=== PATIENT | female | born 1990 | race Caucasian/White ===

== ENCOUNTER 2020-07-11 18:14 | Emergency (ER) | payer OTHER ==
[~2020-07-11 18:14] MED LIST: CEFUROXIME500 MG PO; OMEPRAZOLE20 M1 PO; TRANDATE 100 M100 MG PO; ZOLOFT25 MG PO
[2020-07-11 21:21] LABS: HEMOGLOBIN 13.6 gm/dl (12.3-15.3); RED BLOOD COUNT 5.03 M/UL (4.00-5.10); WHITE BLOOD COUNT 8.4 K/UL (4.5-11.0)
[2020-07-11 22:05] LABS: BUN/CREATININE RATIO 11 (0-10)
== END 2020-07-11 22:19 | disposition home or self-care (01) ==
LOC: ER1 18:14
PROVIDERS: Physician Assistant Medical
DX: O03.9 Complete or unspecified spontaneous abortion without complication (principal); I10 Essential (primary) hypertension; Z79.899 Other long term (current) drug therapy
CPT/HCPCS: 80053; 81001; 85025; 99284

== ENCOUNTER → 2020-07-13 | Day surgery (SDC) | payer OTHER ==
[2020-07-13 07:54] LABS: HEMOGLOBIN 12.6 gm/dl (12.3-15.3); RED BLOOD COUNT 4.78 M/UL (4.00-5.10); WHITE BLOOD COUNT 8.7 K/UL (4.5-11.0)
== END | disposition home or self-care (01) ==
LOC: OR 07:16
PROVIDERS: Obstetrics & Gynecology
PROC: 10D17ZZ Extraction of Products of Conception, Retained, Via Natural or Artificial Opening (ICD-10-PCS; principal; 2020-07-13 08:20)
DX: O02.1 Missed abortion (principal); Z3A.01 Less than 8 weeks gestation of pregnancy; F32.9 Major depressive disorder, single episode, unspecified; I10 Essential (primary) hypertension; G43.909 Migraine, unspecified, not intractable, without status migrainosus; Z20.822 Contact with and (suspected) exposure to COVID-19
CPT/HCPCS: 36415; 81001; 85025; J1100; J1170; J1885; J2001; J2250; J2270; J2405; J2704; J2795; J3010; J7120

== ENCOUNTER 2021-06-03 08:46 | Emergency (ER) | payer OTHER ==
[2021-06-03] MEDS ORDERED: AMOXICILLIN875 MG PO (10:33)
== END 2021-06-03 10:43 | disposition home or self-care (01) ==
LOC: ER1 08:46
DX: K12.2 Cellulitis and abscess of mouth (principal); I10 Essential (primary) hypertension; K21.9 Gastro-esophageal reflux disease without esophagitis
CPT/HCPCS: 87081; 87880; 96372; 99283; J1100

== ENCOUNTER 2021-07-08 21:18 | Emergency (ER) | payer OTHER ==
[~2021-07-08 21:18] MED LIST changes: +AMOXICILLIN875 MG PO
[2021-07-08 22:23] LABS: HEMOGLOBIN 12.3 gm/dl (12.3-15.3); RED BLOOD COUNT 4.55 M/UL (4.00-5.10); WHITE BLOOD COUNT 9.2 K/UL (4.5-11.0)
[2021-07-08 22:53] LABS: BUN/CREATININE RATIO 14 (0-10)
== END 2021-07-09 01:40 | disposition home or self-care (01) ==
LOC: ER1 21:18
PROVIDERS: Physician Assistant
DX: O99.891 Other specified diseases and conditions complicating pregnancy (principal); R07.89 Other chest pain; O10.911 Unspecified pre-existing hypertension complicating pregnancy, first trimester; Z20.822 Contact with and (suspected) exposure to COVID-19; Z3A.01 Less than 8 weeks gestation of pregnancy
CPT/HCPCS: 80053; 82550; 82553; 83874; 84484; 85025; 93005; 99285; U0002

== ENCOUNTER → 2021-07-19 | Day surgery (SDC) | payer OTHER ==
[~2021-07-19] MED LIST changes: +ESCITALOPRAM OX10 MG PO; +HYDROCODON-ACE1 EAC4 PO; +IBU600 MG PO
[2021-07-19 09:08] LABS: HEMOGLOBIN 12.4 gm/dl (12.3-15.3); RED BLOOD COUNT 4.66 M/UL (4.00-5.10); WHITE BLOOD COUNT 6.4 K/UL (4.5-11.0)
[2021-07-19 09:35] LABS: BUN/CREATININE RATIO 15 (0-10)
== END | disposition home or self-care (01) ==
LOC: OR 07-18 14:45
PROVIDERS: Obstetrics & Gynecology
DX: O02.1 Missed abortion (principal); I10 Essential (primary) hypertension; G43.909 Migraine, unspecified, not intractable, without status migrainosus; E66.9 Obesity, unspecified; Z3A.42 42 weeks gestation of pregnancy; Z20.822 Contact with and (suspected) exposure to COVID-19; K21.9 Gastro-esophageal reflux disease without esophagitis
CPT/HCPCS: 36415; 80053; 85025; J1100; J2001; J2250; J2405; J2704; J2795; J3010; J7120

== ENCOUNTER → 2022-01-08 | Outpatient (CLI) | payer OTHER ==
[~2022-01-08] MED LIST changes: +HYDROCODON-ACE1 EAC2 PO; +NAPROXEN 375 M375 MG PO; +VITAMIN B-121000 MCG PO; +VITAMIN D21250 MCG PO; +ZOFRAN 4 MG TAB4 MG PO
== END ==
LOC: RAD 11:08
DX: T83.89XA Other specified complication of genitourinary prosthetic devices, implants and grafts, initial encounter (principal); T83.39XA Other mechanical complication of intrauterine contraceptive device, initial encounter
CPT/HCPCS: 74018

== ENCOUNTER → 2022-01-10 | Day surgery (SDC) | payer OTHER ==
[2022-01-10 07:19] LABS: HEMOGLOBIN 12.3 gm/dl (12.3-15.3); RED BLOOD COUNT 4.69 M/UL (4.00-5.10); WHITE BLOOD COUNT 7.3 K/UL (4.5-11.0)
[2022-01-10 07:48] LABS: BUN/CREATININE RATIO 17 (0-10)
== END | disposition home or self-care (01) ==
LOC: OR 06:33
PROVIDERS: Obstetrics & Gynecology
DX: T83.32XA Displacement of intrauterine contraceptive device, initial encounter (principal); Y76.2 Prosthetic and other implants, materials and accessory obstetric and gynecological devices associated with adverse incidents; Y83.8 Other surgical procedures as the cause of abnormal reaction of the patient, or of later complication, without mention of misadventure at the time of the procedure; I10 Essential (primary) hypertension
CPT/HCPCS: 36415; 80053; 84702; 85025; J1100; J1885; J2001; J2250; J2405; J2704; J2795; J3010